=== PATIENT | female | born 1935 | race Caucasian/White ===

== ENCOUNTER → 2018-01-19 | Outpatient (CLI) | payer OTHER ==
[~2018-01-19] MED LIST: MULVITMIND PO; Zofran4 MG PO
== END | disposition home or self-care (01) ==
LOC: OLS 17:06 → LAB SHORT 17:06
PROVIDERS: Nurse Practitioner Women's Health
DX: Z12.4 Encounter for screening for malignant neoplasm of cervix (principal); Z91.89 Other specified personal risk factors, not elsewhere classified
CPT/HCPCS: 87624; G0123

== ENCOUNTER 2019-08-05 20:55 | Emergency (ER) | payer OTHER ==
[~2019-08-05] VITALS: Ht 162.6 cm; Wt 54.4 kg
[~2019-08-05 20:55] MED LIST changes: +Aspirin EC81 MG PO; +Omeprazole20 M1 PO
[2019-08-05] MEDS ORDERED: DULO30 PO (21:03)
[2019-08-05] MEDS ORDERED: ANAS1 PO (21:03)
== END 2019-08-05 21:07 | disposition home or self-care (01) ==
LOC: ER 20:55
DX: S50.11XA Contusion of right forearm, initial encounter (principal); Z79.82 Long term (current) use of aspirin; Z79.899 Other long term (current) drug therapy; Z85.3 Personal history of malignant neoplasm of breast; W01.0XXA Fall on same level from slipping, tripping and stumbling without subsequent striking against object, initial encounter
CPT/HCPCS: 99283

== ENCOUNTER 2021-09-26 19:09 | Emergency (ER) | payer OTHER ==
[~2021-09-26] VITALS: Ht 157.5 cm; Wt 49.9 kg
[~2021-09-26 19:09] MED LIST changes: +ANAS1 PO; +DULO30 PO
== END 2021-09-26 21:35 | disposition home or self-care (01) ==
LOC: ER 19:09
DX: S61.201A Unspecified open wound of left index finger without damage to nail, initial encounter (principal); W45.8XXA Other foreign body or object entering through skin, initial encounter; Z79.899 Other long term (current) drug therapy; Z79.82 Long term (current) use of aspirin
CPT/HCPCS: 73140; 90714; 99283-25

== ENCOUNTER → 2025-01-05 | Outpatient (CLI) | payer MEDICARE | LOC: LAB SHORT 12:14 → LAB 12:14 | DX: R31.0 Gross hematuria (principal) | CPT/HCPCS: 87086 ==